=== PATIENT | female | born 1990 ===

== ENCOUNTER 2024-09-13 10:15 | Inpatient (IN) | payer OTHER ==
[~2024-09-13] VITALS: Ht 30.5 cm; Wt 47.2 kg
[2024-09-13] MEDS ORDERED: SYNTHROID75 MCG PO (14:25)
[2024-09-30] MEDS ORDERED: CEFTRIAXONE SODIUM 2,000 MG VIAL ONE (14:03)
[2024-09-30] MEDS ORDERED: METRONIDAZOLE/SODIUM CHLORIDE 500 MG/100 ML PIGGYBACK IV ONE ×2 (14:03→18:42)
[2024-09-30] MEDS ORDERED: LIDOCAINE HCL 1%/EPINEPHRINE 20ML VIAL IJ ONE (14:09)
[2024-09-30] MEDS ORDERED: BUPIVACAINE HCL/MPF 0.5% 30ML VIAL ONE (14:09)
[2024-09-30] MEDS ORDERED: MORPHINE SULFATE 4 MG/ML CARTRIDGE IV PRN (15:00)
[2024-09-30] MEDS ORDERED: 0.9 % SODIUM CHLORIDE 1,000 ML IV SCH (15:00)
[2024-09-30] MEDS ORDERED: DEXTROSE 50 % IN WATER 0.5 G/ML VIAL IV PRN (15:00)
[2024-09-30] MEDS ORDERED: ONDANSETRON HCL 2 MG/ML VIAL IV PRN (15:00)
[2024-09-30] MEDS ORDERED: OxyCODONE HCL 5 MG TABLET (ROXICODONE) PO PRN (15:00)
[2024-09-30] MEDS ORDERED: POLYETHYLENE GLYCOL 3350 17 GM BLIST.PACK PO SCH (17:00)
[2024-09-30] MEDS ORDERED: GABAPENTIN 300 MG CAPSULE PO SCH (17:00)
[2024-09-30] MEDS ORDERED: HYOSCYAMINE SULFATE 0.125 MG TAB.SUBL SL SCH (17:00)
[2024-09-30] MEDS ORDERED: METRONIDAZOLE/SODIUM CHLORIDE 500 MG/100 ML PIGGYBACK IV SCH (17:00)
[2024-09-30 19:13] LABS: HEMATOCRIT 38.6 % (36.0-45.00); MEAN CELL VOLUME 100.4 fL (80.00-100.00); MEAN CORPUSCULAR HEMOGLOBIN 33.8 pg (27.00-32.0); MEAN CORPUSCULAR HGB CONC 33.7 g/dl (32.0-36.0); PLATELET COUNT 211 K/uL (150-450); RED BLOOD COUNT 3.85 M/uL (4.00-6.00); RED CELL DISTRIBUTION WIDTH 14.2 % (11.5-14.5)
[2024-09-30 19:54] LABS: ALBUMIN 2.9 gm/dL (3.4-5.0); CALCIUM 7.9 mg/dL (8.5-10.1); CREATININE SERUM 0.77 mg/dL (0.55-1.02); GFR 85.31; MAGNESIUM 1.6 mg/dL (1.8-2.4); PHOSPHOROUS 2.8 mg/dL (2.5-4.9); POTASSIUM 3.93 mEq/L (3.5-5.1)
[2024-09-30] MEDS ORDERED: MORPHINE SULFATE 4 MG/ML VIAL IV ONE (20:00)
[2024-09-30] MEDS ORDERED: ACETAMINOPHEN 500 MG GEL..CAP PO SCH (20:00)
[2024-09-30] MEDS ORDERED: CELECOXIB 200 MG CAPSULE PO SCH (21:00)
[2024-09-30] MEDS ORDERED: FAMOTIDINE/PF 20 MG/2 ML VIAL IV PUSH SCH (21:00)
[2024-09-30] MEDS ORDERED: FAMOTIDINE/PF 20 MG/2 ML VIAL ONE (21:43)
[2024-09-30] MEDS ORDERED: INSULIN LISPRO 1,000 UNIT/10 ML UNITS SUBCUTANEO PRN (22:15)
[2024-09-30 22:44] VITALS: BP 90/55; O2SAT 98
[2024-10-01 00:49] VITALS: BP 96/60; O2SAT 97
[2024-10-01 07:00] LABS: HEMATOCRIT 32.6 % (36.0-45.00); HEMOGLOBIN 11.4 g/dL (12.0-15.00); MEAN CELL VOLUME 98.4 fL (80.00-100.00); MEAN CORPUSCULAR HEMOGLOBIN 34.3 pg (27.00-32.0); MEAN CORPUSCULAR HGB CONC 34.9 g/dl (32.0-36.0); PLATELET COUNT 176 K/uL (150-450); RED BLOOD COUNT 3.32 M/uL (4.00-6.00); RED CELL DISTRIBUTION WIDTH 14.2 % (11.5-14.5)
[2024-10-01 07:38] LABS: ALBUMIN 2.3 gm/dL (3.4-5.0); CALCIUM 7.6 mg/dL (8.5-10.1); CREATININE SERUM 0.7 mg/dL (0.55-1.02); GFR 95.22; MAGNESIUM 1.6 mg/dL (1.8-2.4); PHOSPHOROUS 2.8 mg/dL (2.5-4.9); POTASSIUM 4.02 mEq/L (3.5-5.1)
[2024-10-01 08:00] VITALS: BP 103/66; O2SAT 100
[2024-10-01 16:00] VITALS: BP 93/63; O2SAT 99
[2024-10-01] MEDS ORDERED: ENOXAPARIN SODIUM 40 MG/0.4 ML SYRINGE SUBCUTANEO SCH (17:00)
[2024-10-02 01:17] VITALS: BP 90/68; O2SAT 99
[2024-10-02] MEDS ORDERED: LEVOTHYROXINE SODIUM 75 MCG TABLET PO SCH (06:00)
[2024-10-02 08:00] VITALS: BP 104/66; O2SAT 100
[2024-10-02] MEDS ORDERED: ENOXAPARIN SODIUM 40 MG/0.4 ML SYRINGE SUBCUTANEO SCH (09:00)
[2024-10-02 16:00] VITALS: BP 90/56; O2SAT 98
[2024-10-02 19:23] VITALS: BP 97/64
[2024-10-03 00:32] VITALS: BP 103/67; O2SAT 98
[2024-10-03 08:00] VITALS: BP 114/71; O2SAT 100
[2024-10-03] MEDS ORDERED: CELECOXIB200 MG PO (12:24)
[2024-10-03] MEDS ORDERED: GAS RELIEF125 MG PO (12:24)
[2024-10-03] MEDS ORDERED: INTESTINEX680 M1 PO (12:24)
== END 2024-10-03 14:52 | disposition home or self-care (01) | DRG 331 ==
LOC: SURH 09-23 10:15 → O/R 09-30 09:42 → SURH 09-30 09:42
PROVIDERS: ADMIT Surgery; ATTEND Surgery
PROC: 0DQP4ZZ Repair Rectum, Percutaneous Endoscopic Approach (ICD-10-PCS; 2024-09-30)
PROC: 0DTN4ZZ Resection of Sigmoid Colon, Percutaneous Endoscopic Approach (ICD-10-PCS; principal; 2024-09-30 13:00)
DX: K62.3 Rectal prolapse (principal); R19.4 Change in bowel habit; Q90.9 Down syndrome, unspecified